=== PATIENT | male | born 1990 | race Caucasian/White ===

== ENCOUNTER 2022-10-14 06:13 | Outpatient (CLI) | payer MEDICAID, SELFPAY ==
--- NOTE | 2022-10-14 | US_ITS ---
WS: [id number] RIGHT UPPER QUADRANT ULTRASOUND HISTORY: Elevated bilirubin COMPARISON: None available. Liver: 15.8 cm in length. Normal size liver with mild coarsened echotexture. No mass or bile duct dil atation. Portal Vein: Normal hepatopetal flow with monophasic waveform. Gallbladder: Normally distended gallbladder with no stones or wall thickening. CBD: 0.3 cm Pancreas: Normal body. Head and tail are obscured by bowel gas. Right kidney: 11.0 cm in length. Normal size and echogenicity. No hydronephrosis or mass. Aorta and IVC: Unremarkable abdominal aorta and IVC. No ascites. US/US gall bladder [id number] IMPRESSION: 1. Normal gallbladder. 2. Very mild hepatic steatosis.
== END 2022-10-14 06:14 | disposition home or self-care (01) ==
LOC: RAD 06:18
PROVIDERS: PCP Nurse Practitioner; Visit Provider Nurse Practitioner
DX: K76.0 Fatty (change of) liver, not elsewhere classified (principal)
CPT/HCPCS: 76705

== ENCOUNTER → 2025-05-09 11:10 | Outpatient (BNVA) | payer MEDICAID, SELFPAY | PROVIDERS: PCP Nurse Practitioner; Visit Provider Podiatrist Foot & Ankle Surgery | DX: M79.671 Pain in right foot (principal); Q74.2 Other congenital malformations of lower limb(s), including pelvic girdle; S92.324A Nondisplaced fracture of second metatarsal bone, right foot, initial encounter for closed fracture; W16.92XA Jumping or diving into unspecified water causing other injury, initial encounter | CPT/HCPCS: 73630 ==